=== PATIENT | male | born 1990 | race Caucasian/White ===

== ENCOUNTER 2023-12-22 08:42 | Outpatient (AMB) | payer SELFPAY ==
[2023-12-22 08:48] VITALS: BP 98/62; PULSE 80; TEMP 36.6; O2SAT 98; BMI 14.7
--- NOTE | 2023-12-22 08:48 | AM.OFFWIN_ITS ---
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 He states it has become painful and was erythemic which has resolved. Denies any other injury or trauma to the area, but does state he was doing a lot of typing yesterday which could have increased the pain yesterday. It is painfree today Review of Systems Const All systems reviewed & are unremarkable except as noted in HPI and below Physical Exam Vital Signs: Last Vital Signs Temp 98 F 12/22/23 08:48 Pulse 80 12/22/23 08:48 BP 98/62 12/22/23 08:48 Pulse Ox 98 12/22/23 08:48 BMI result Body Mass Index 14.7 Skin Lesions: no lesions Rashes: no rashes Trauma: no lacerations or abrasions (wound was not observable and no erythema present) Wounds: no wounds Extrem General: Yes normal to inspection and Yes full ROM Right upper extremity: normal to inspection, full ROM and Extremity exam: right hand Details: normal to inspection, normal capillary refill, neuromotor exam normal, neurosensory exam normal, normal ROM of fingers and no swelling Assessment & Plan Assessment & Plan (1) Laceration of finger of right hand: Code(s): S61.219A - Laceration without foreign body of unspecified finger without damage to nail, initial encounter Plan: No treatment necessary. Continue to use to tolerance and RTC as needed. Plan see plan Coding Level of Care Code Est Pt Level 3 (19210) Diagnoses Laceration of finger of right hand S61.219A
== END 2023-12-22 09:18 | disposition home or self-care (01) ==
PROVIDERS: PCP Internal Medicine; Visit Provider Physician Assistant Medical
DX: S61.219A Laceration without foreign body of unspecified finger without damage to nail, initial encounter (principal)
CPT/HCPCS: 99203; 99213